=== PATIENT | male | born 1970 | race Caucasian/White ===

== ENCOUNTER 2020-09-16 00:20 | Emergency (ER) | payer OTHER ==
[~2020-09-16] VITALS: Ht 185.4 cm; Wt 63.6 kg
[2020-09-16] MEDS ORDERED: AMOX/K CLAV875 M1 PO (01:29)
[2020-09-16] MEDS ORDERED: BENZTROPINE0.5 MG PO (01:30)
[2020-09-16] MEDS ORDERED: PAROXETINE20 MG PO (01:31)
[2020-09-16] MEDS ORDERED: OLANZAPINE10 MG PO (01:31)
[2020-09-16] MEDS ORDERED: VALPROIC ACD250 M3 PO (01:32)
[2020-09-16] MEDS ORDERED: ALBUTEROL SUL0.083 % IN (01:34)
[2020-09-16 01:50] VITALS: BP 110/58
== END 2020-09-16 01:50 | disposition designated cancer center or children's hospital (05) | DRG 605 ==
LOC: ED 00:20
PROC: 0HQ0XZZ Repair Scalp Skin, External Approach (ICD-10-PCS; principal; 2020-09-16)
DX: S01.01XA Laceration without foreign body of scalp, initial encounter (principal); S41.151A Open bite of right upper arm, initial encounter; S00.471A Other superficial bite of right ear, initial encounter; Y04.1XXA Assault by human bite, initial encounter; Y04.2XXA Assault by strike against or bumped into by another person, initial encounter; Y92.143 Cell of prison as the place of occurrence of the external cause

== ENCOUNTER 2021-05-26 18:05 | Emergency (ER) | payer OTHER ==
[~2021-05-26] VITALS: Ht 185.4 cm; Wt 85.0 kg
[~2021-05-26 18:05] MED LIST: ALBUTEROL SUL0.083 % IN; AMOX/K CLAV875 M1 PO; BENZTROPINE0.5 MG PO; OLANZAPINE10 MG PO; PAROXETINE20 MG PO; VALPROIC ACD250 M3 PO
[2021-05-26 19:35] LABS: HEMATOCRIT 47.3 % (39.0-50.0); HEMOGLOBIN 15.7 g/dl (14.0-18.0); IMMATURE GRANULOCYTES 0.2 % (0.0-5.0); MEAN CELL VOLUME 97.5 fL CALC (80.0-100.0); MEAN CORPUSCULAR HGB 32.4 pG CALC (26.0-32.0); MEAN CORPUSCULAR HGB CONC 33.2 g/dL CAL (32.0-36.0); NEUT# 6.18 thou/uL (1.82-7.42); RED BLOOD COUNT 4.85 mill/uL (4.70-6.10); RED CELL DISTRI WIDTH 12.2 % (11.5-15.5)
[2021-05-26 19:49] LABS: ALBUMIN 3.8 g/dL (3.2-5.0); ALKALINE PHOSPHATASE 64 u/l (38-126); ANION GAP 13 (6-22 (CALC)); BILIRUBIN, TOTAL 0.3 mg/dL (0.0-1.4); BUN 11 mg/dL (9-20); BUN/CREATININE RATIO 13 (12-20 (CALC)); CARBON DIOXIDE 27 mmol/l (22-30); CHLORIDE 99 mmol/l (95-108); CREATININE 0.8 mg/dL (0.7-1.3); GFR > 60 ML/MIN (>=60 (CALC)); GFR FOR AFR.AMER. > 60 ML/MIN (>=60 (CALC)); POTASSIUM 4.6 mmol/l (3.5-5.1); SGOT/AST 28 u/l (17-59); SODIUM 134 mmol/l (137-146)
[2021-05-26 19:51] LABS: PROTHROMBIN TIME 10.6 SECONDS (9.0-12.5)
[2021-05-26 20:02] LABS: MYOGLOBIN 26 ng/mL (0 - 121)
[2021-05-26 21:30] VITALS: BP 109/60
== END 2021-05-26 21:30 | disposition designated cancer center or children's hospital (05) | DRG 313 ==
LOC: ED 18:05
PROVIDERS: Emergency Medicine
DX: R07.9 Chest pain, unspecified (principal); I48.91 Unspecified atrial fibrillation; Z87.820 Personal history of traumatic brain injury

== ENCOUNTER 2023-11-12 20:27 | Emergency (ER) | payer OTHER ==
[2023-11-12] VITALS (13 sets, daily range): BP systolic 89–125; BP diastolic 46–68
[~2023-11-12] VITALS: Ht 185.4 cm; Wt 67.1 kg
[2023-11-12] MEDS ORDERED: ATORVASTATIN CA20 MG PO (20:48)
[2023-11-12] MEDS ORDERED: ZYPREXA20 MG PO (20:48)
[2023-11-12] MEDS ORDERED: JANTOVEN2.5 MG PO (20:48)
[2023-11-12] MEDS ORDERED: DEPAKOTE250 MG PO (20:49)
[2023-11-12] MEDS ORDERED: NALTREXONE HCL50 MG PO (20:49)
[2023-11-12] MEDS ORDERED: CLONIDINE0.2 MG PO (20:50)
[2023-11-12 20:53] LABS: BASO% 0.1 % (0-3); HEMATOCRIT 46.5 % (39.0-50.0); IMMATURE GRANULOCYTES 0.1 % (0.0-5.0); LYMPH% 13.8 % (15-41); MEAN CELL VOLUME 93.2 fL CALC (80.0-100.0); MEAN CORPUSCULAR HGB 32.1 pG CALC (26.0-32.0); MEAN CORPUSCULAR HGB CONC 34.4 g/dL CAL (32.0-36.0); MONO% 8.8 % (2-13); NEUT# 7.44 thou/uL (1.82-7.42); NEUT% 77.2 % (42-76); RED BLOOD COUNT 4.99 mill/uL (4.70-6.10); RED CELL DISTRI WIDTH 13.1 % (11.5-15.5)
[2023-11-12 21:11] LABS: ALBUMIN 4.5 g/dL (3.2-5.0); ALKALINE PHOSPHATASE 62 u/l (38-126); BUN 18 mg/dL (9-20); BUN/CREATININE RATIO 22 (12-20 (CALC)); CHLORIDE 98 mmol/l (95-108); CPK 52 u/l (55-170); CREATININE 0.8 mg/dL (0.7-1.3); GFR FOR AFR.AMER. > 60 ML/MIN (>=60 (CALC)); GFR OTHER RACES > 60 ML/MIN (>=60 (CALC)); LIPASE 78 u/l (23-300); SGOT/AST 29 u/l (17-59); SODIUM 135 mmol/l (137-146); TOTAL PROTEIN 7.9 g/dL (6.3-8.2)
[2023-11-12 21:12] LABS: ANION GAP 20 (6-22 (CALC)); BILIRUBIN, TOTAL 0.9 mg/dL (0.2-1.3); CARBON DIOXIDE 21 mmol/l (22-30); POTASSIUM 3.6 mmol/l (3.5-5.1)
[2023-11-12 21:17] LABS: D-DIMER 0.26 mg/L (0.19-0.60)
[2023-11-12 21:24] LABS: INTERNATIONAL NORMALIZED RATIO 2.6 RATIO (0.7-1.3); PROTHROMBIN TIME 23.5 SECONDS (9.0-12.5)
[2023-11-13] VITALS (12 sets, daily range): BP systolic 110–126; BP diastolic 53–73
== END 2023-11-13 03:02 | DRG 313 ==
LOC: ED 20:27
PROVIDERS: Internal Medicine
DX: R07.9 Chest pain, unspecified (principal); I48.91 Unspecified atrial fibrillation; Z79.01 Long term (current) use of anticoagulants; Z87.820 Personal history of traumatic brain injury

== ENCOUNTER 2023-12-07 15:23 | Emergency (ER) | payer OTHER ==
[2023-12-07] VITALS (19 sets, daily range): BP systolic 102–119; BP diastolic 46–63
[~2023-12-07] VITALS: Ht 185.4 cm; Wt 68.2 kg
[~2023-12-07 15:23] MED LIST changes: +ATORVASTATIN CA20 MG PO; +CLONIDINE0.2 MG PO; +DEPAKOTE250 MG PO; +JANTOVEN2.5 MG PO; +NALTREXONE HCL50 MG PO; +ZYPREXA20 MG PO
[2023-12-07 17:33] LABS: BASO% 0.2 % (0-3); EOS% 0.3 % (0-8); IMMATURE GRANULOCYTES 0.3 % (0.0-5.0); LYMPH% 22.5 % (15-41); MEAN CELL VOLUME 95.5 fL CALC (80.0-100.0); MEAN CORPUSCULAR HGB 32.4 pG CALC (26.0-32.0); MEAN CORPUSCULAR HGB CONC 33.9 g/dL CAL (32.0-36.0); MONO% 6.7 % (2-13); NEUT# 4.21 thou/uL (1.82-7.42); RED BLOOD COUNT 4.01 mill/uL (4.70-6.10); RED CELL DISTRI WIDTH 13.2 % (11.5-15.5)
[2023-12-07 17:35] LABS: HEMATOCRIT 38.3 % (39.0-50.0); URINE BILIRUBIN - DIPSTICK Negative (NEGATIVE); URINE BLOOD DIPSTICK Negative (NEGATIVE); URINE GLUCOSE - DIPSTICK Negative (NEGATIVE); URINE KETONE Negative (NEGATIVE); URINE LEUK ESTERASE Negative (NEGATIVE); URINE NITRITE - DIPSTICK Negative (Negative); URINE PH 8.5 (4.5-8.0); URINE PROTEIN - DIPSTICK Negative (NEG-TRACE); URINE SPECIFIC GRAVITY 1.015
[2023-12-07 17:36] LABS: URINE COLOR Yellow
[2023-12-07 17:50] LABS: ALKALINE PHOSPHATASE 87 u/l (38-126); BUN 10 mg/dL (9-20); BUN/CREATININE RATIO 20 (12-20 (CALC)); CHLORIDE 100 mmol/l (95-108); CREATININE 0.5 mg/dL (0.7-1.3); GFR FOR AFR.AMER. > 60 ML/MIN (>=60 (CALC)); GFR OTHER RACES > 60 ML/MIN (>=60 (CALC)); POTASSIUM 4.3 mmol/l (3.5-5.1); SGOT/AST 46 u/l (17-59); SODIUM 131 mmol/l (137-146)
[2023-12-07 17:53] LABS: ALBUMIN 3.4 g/dL (3.2-5.0); ANION GAP 9 (6-22 (CALC)); BILIRUBIN, TOTAL 0.4 mg/dL (0.2-1.3); CARBON DIOXIDE 26 mmol/l (22-30); TOTAL PROTEIN 6.3 g/dL (6.3-8.2)
== END 2023-12-07 19:36 | disposition home or self-care (01) | DRG 101 ==
LOC: ED 15:23
PROVIDERS: Emergency Medicine
DX: R56.9 Unspecified convulsions (principal); I48.91 Unspecified atrial fibrillation; Z20.822 Contact with and (suspected) exposure to COVID-19